=== PATIENT | female | born 1975 | race Caucasian/White ===

== ENCOUNTER 2017-06-24 11:16 | Outpatient (CLI) | payer OTHER ==
--- NOTE | 2017-06-24 14:42 | MRI ---
MRI OF LEFT KNEE PERFORMED WITHOUT CONTRAST ENHANCEMENT: Date: 06/24/17 HISTORY: Left knee pain. No history of previous surgery. FINDINGS: The anterior, as well as posterior cruciate ligaments are intact. The medial meniscus on the coronal sequence, image 18 of 25 on the proton density sequence, shows a t iny free edge tear. The lateral meniscus is normal in shape and appearance. Medial and lateral collateral ligaments and iliotibial band regions are unremarkable. Patellar articular cartilage is intact. The medial and lateral patellar retinaculum and quadriceps an d patellar tendons are normal in appearance. IMPRESSION: Tiny free edge radial tear involving the mid portion of the body of the posterior horn of the medial meniscus. POS: [facility]
== END 2017-06-24 11:17 | disposition home or self-care (01) ==
LOC: MRI 11:16
PROVIDERS: ATTEND Orthopaedic Surgery
DX: M25.562 Pain in left knee (principal); S83.242A Other tear of medial meniscus, current injury, left knee, initial encounter

== ENCOUNTER 2018-08-02 14:39 | Outpatient (CLI) | payer OTHER ==
--- NOTE | 2018-08-02 15:30 | RAD ---
TWO VIEWS OF THE CHEST: COMPARISON: 09/05/2012. HISTORY: Cough and wheezing for 4 months. FINDINGS: Two views of the chest show a normal-size cardiomediastinal silhouette. There are subtle airspace op acities projecting over the mid left thorax which were not seen on the prior radiograph and may repre sent a subtle infiltrate. NO pleural effusion is seen. The bones are unremarkable. IMPRESSION: Subtle left-sided pulmonary infiltrate. POS: [facility]
== END 2018-08-02 14:40 | disposition home or self-care (01) ==
LOC: BICRAD 14:39
PROVIDERS: ATTEND Family Medicine
DX: R05 Cough (principal); J98.4 Other disorders of lung
CPT/HCPCS: 71046

== ENCOUNTER 2019-07-04 08:08 | Outpatient (CLI) | payer OTHER | END 2019-07-04 08:09 | disposition home or self-care (01) | LOC: DTY/OP 08:08 | PROVIDERS: ATTEND Surgery | DX: E66.01 Morbid (severe) obesity due to excess calories (principal) | CPT/HCPCS: 97802 ==

== ENCOUNTER 2019-07-06 15:52 | Outpatient (CLI) | payer OTHER ==
--- NOTE | 2019-07-06 16:28 | RAD ---
Exam: 2 views right calcaneus HISTORY: Burning sensation, times a couple months. FINDINGS: Mild hypertrophic changes of the calcaneus at the plantar aponeurosis site as well as at the Achilles tendon insertion site. Normal trabeculation. No evidence of subtalar compromise. No fracture. Nonspecific sclerosis of the calcaneus is noted IMPRESSION: Presumed chronic changes. No acute fracture.
== END 2019-07-06 15:53 | disposition home or self-care (01) ==
LOC: BICRAD 15:52
PROVIDERS: ATTEND Family Medicine
DX: M79.671 Pain in right foot (principal)

== ENCOUNTER 2019-08-03 13:02 | Outpatient (CLI) | payer OTHER | END 2019-08-03 13:03 | disposition home or self-care (01) | LOC: DTY/OP 13:02 | PROVIDERS: ATTEND Surgery | DX: E66.01 Morbid (severe) obesity due to excess calories (principal) | CPT/HCPCS: 97802 ==

== ENCOUNTER 2019-09-05 14:30 | Outpatient (CLI) | payer OTHER | END 2019-09-05 14:31 | disposition home or self-care (01) | LOC: DTY/OP 14:30 | PROVIDERS: ATTEND Surgery | DX: E66.01 Morbid (severe) obesity due to excess calories (principal) | CPT/HCPCS: 97802 ==

== ENCOUNTER 2019-10-04 12:02 | Outpatient (CLI) | payer OTHER | END 2019-10-04 12:03 | disposition home or self-care (01) | LOC: DTY/OP 12:02 | PROVIDERS: ATTEND Surgery | DX: E66.01 Morbid (severe) obesity due to excess calories (principal) | CPT/HCPCS: 97802 ==

== ENCOUNTER 2019-12-02 07:07 | Outpatient (CLI) | payer OTHER | END 2019-12-02 07:08 | disposition home or self-care (01) | LOC: LABBT 07:07 | PROVIDERS: ATTEND Surgery | DX: E66.01 Morbid (severe) obesity due to excess calories (principal); Z20.828 Contact with and (suspected) exposure to other viral communicable diseases | CPT/HCPCS: 71046; 80053; 83036; 84703; 85025; 87635; U0003 ==

== ENCOUNTER 2019-12-02 09:45 | Inpatient (IN) | payer OTHER ==
[2019-12-06] MEDS ORDERED: Heparin 5,000 UNITS/ML VIAL ONE (06:43)
[2019-12-06] MEDS ORDERED: Fentanyl 100 MCG/2 ML VIAL ONE ×3 (06:55→08:59)
[2019-12-06] MEDS ORDERED: Bupivacaine 0.25% HCL 30 ML VIAL ONE (07:08)
[2019-12-06] MEDS ORDERED: Lidocaine 1% w/Epinephrine 1:100K 20 ML VIAL ONE (07:08)
[2019-12-06] MEDS ORDERED: Midazolam HCl 2 mg/2 ml Vial ONE (07:13)
[2019-12-06] MEDS ORDERED: Zolpidem Tartrate 5 MG TAB PO PRN (08:49)
[2019-12-06] MEDS ORDERED: fentaNYL Citrate/PF 2,000 MCG in Sodium Chloride 0.9% 60 ML IV PRN (08:49)
[2019-12-06] MEDS ORDERED: Promethazine HCl 25 MG/ML VIAL IM PRN ×3 (08:49→10:31)
[2019-12-06] MEDS ORDERED: diphenhydrAMINE 25 MG CAP PO PRN (08:49)
[2019-12-06] MEDS ORDERED: diphenhydrAMINE 50 MG/ML VIAL IM PRN (08:49)
[2019-12-06] MEDS ORDERED: Promethazine HCl 25 MG/ML VIAL SLOW IVP PRN (08:49)
[2019-12-06] MEDS ORDERED: Ondansetron HCl/PF 4 MG/2 ML Vial IVP PRN (08:49)
[2019-12-06] MEDS ORDERED: diphenhydrAMINE 50 MG/ML VIAL IVP PRN ×2 (08:49→10:31)
[2019-12-06] MEDS ORDERED: Naloxone HCl 0.4 mg/ml Vial IV PRN (08:49)
[2019-12-06] MEDS ORDERED: Communication Order-Pharmacy FS SCH (09:00)
--- NOTE | 2019-12-06 09:42 | OP ---
DATE OF PROCEDURE: 12/06/2019 PREOPERATIVE DIAGNOSES: 1. Morbid obesity with body mass index of 39. 2. Hypertension. POSTOPERATIVE DIAGNOSES: 1. Morbid obesity with body mass index of 39. 2. Hypertension. PROCEDURES PERFORMED: 1. Laparoscopic sleeve gastrectomy with [place] staple line reinforcement and 38-[place] bougie. 2. Esophagogastroduodenoscopy. ANESTHESIA: General. ESTIMATED BLOOD LOSS: Minimal. COMPLICATIONS: None. SPECIMEN: Stomach. FINDINGS: Normal postoperative EGD. DESCRIPTION OF PROCEDURE: The patient was taken to the operating room and laid supine on the operating room table. After general anesthetic was obtained, an OG tube was used to decompress the stomach. The arms and legs were double strapped to bariatric table. The abdomen was prepped and draped in a sterile fashion. Left subcostal 5-mm Optiview trocar was placed in the usual fashion and high-flow pneumoperitoneum was obtained. Left and right abdominal 12-mm ports as well as a right subcostal 5-mm port were placed under direct visualization. Ismael was brought in through the xiphoid and used to raise the liver off the GE junction. Short gastrics were taken down from mid body of stomach to left jordy of diaphragm. Left jordy, posterior fundus, and angle of His were completely dissected. Short gastrics were taken down to a distance of 6 cm proximal to the pylorus. There was no hiatal hernia. OG tube was removed and a 38 bougie was brought in, tip was left in the antrum of the stomach. Multiple loads of an Reid stapling device were used to form the sleeve. The first was a green load, fired up at 6 cm proximal to the pylorus, angled up towards the incisura. Care was taken to avoid being too close to the incisura. Multiple loads were then fired along the bougie. Stomach was completely transected at the angle of His. Stomach was removed from the left abdominal incision. The fascial defect was closed using GraNee needle and 0 Vicryl tie. EGD scope was passed through esophagus and stomach to the level of duodenum without obstruction. There was no stricture at the incisura. There was no evidence of leakage along that staple line. There was no bleeding. EGD scope was used to decompress the stomach. It was pulled and removed. All port sites were infiltrated using local anesthetic. All ports were removed under camera visualization. Pneumoperitoneum was let down. Vicryl was used to close the fascia defect from the left abdominal incisions. All incisions were irrigated and closed using 4-0 Monocryl and Dermabond. The patient was sent to Recovery in stable condition. All instrument counts, needle counts, and lap counts were correct. Job ID: [id number]
[2019-12-06] MEDS ORDERED: Pantoprazole 40 MG VIAL IVP SCH ×2 (10:31→11:15)
[2019-12-06] MEDS ORDERED: Dextrose 5% in Water 1,000 ML IV PRN (10:31)
[2019-12-06] MEDS ORDERED: hydrALAZINE 20 MG/ML VIAL SLOW IVP PRN (10:31)
[2019-12-06] MEDS ORDERED: BUPROPION HCL 150 MG PO SCH (10:31)
[2019-12-06] MEDS ORDERED: Hydrocodone-Acetamin 15 ML UDCUP PO PRN (10:31)
[2019-12-06] MEDS ORDERED: Dextrose 50% Abboject 50 ML SYRINGE SLOW IVP PRN (10:31)
[2019-12-06] MEDS ORDERED: Lisinopril 20 MG TAB PO SCH ×2 (10:31→11:15)
[2019-12-06] MEDS ORDERED: Ondansetron PF 4 MG/2 ML Vial IVP PRN (10:31)
[2019-12-06] MEDS ORDERED: Lidocaine 1% PF 5 ML VIAL ONE (10:42)
[2019-12-06] MEDS ORDERED: EPHEDRINE 25 MG/5 ML SYRINGE ONE (10:42)
[2019-12-06] MEDS ORDERED: PHENYLEPHRINE-NS 100 MCG/ML 10 ML SYRINGE ONE (10:42)
[2019-12-06] MEDS ORDERED: Glycopyrrolate 0.2 MG/ML 5 ML SYRINGE ONE (10:42)
[2019-12-06] MEDS ORDERED: Rocuronium Bromide 10 MG/ML (10ML VIAL) ONE (10:42)
[2019-12-06] MEDS ORDERED: Ondansetron PF 4 MG/2 ML Vial ONE (10:42)
[2019-12-06] MEDS ORDERED: Dexamethasone 20 MG/5 ML VIAL ONE (10:42)
[2019-12-06] MEDS ORDERED: PROPOFOL 200 MG/20 ML VIAL ONE (10:42)
[2019-12-06] MEDS: Ondansetron PF 4 MG/2 ML Vial IVP PRN ×2 (10:47→22:33)
[2019-12-06 10:49] VITALS: BMI 37.5
[2019-12-06] MEDS ORDERED: Bupropion 150 MG SR TAB PO SCH (11:15)
[2019-12-06] MEDS ORDERED: Ketorolac Tromethamine 30 MG/ML VIAL IVP SCH (12:00)
[2019-12-06] MEDS: D5 1/2 NS w/20 mEq KCL 1,000 ML IV SCH ×2 (13:13→20:27)
[2019-12-06] MEDS: Enoxaparin Sodium 40 MG/0.4 ML SYRINGE SC SCH (20:22)
[2019-12-07] MEDS: D5 1/2 NS w/20 mEq KCL 1,000 ML IV SCH ×2 (04:49→15:01)
[2019-12-07 05:20] LABS: #Lymphocytes 1.8 thou/uL (1.20-3.40); #Monocytes 1.1 thou/uL (0.11-0.59); #Neutrophils 11.4 thou/uL (1.40-6.50); %Basophils 0.2 % (0.0-1.0); %Eosinophils 0.3 % (0.0-10.0); %Lymphocytes 12.2 % (21.0-51.0); %Monocytes 7.8 % (0.0-10.0); %Neutrophils 79.4 % (42.0-75.0); Hemoglobin 14.2 g/dL (12.0-16.0); Mean Corpuscular HGB CONC 32.2 g/dL (32.0-36.0); Mean Corpuscular Hemoglobin 29.8 pg (27.0-31.0); Mean Corpuscular Volume 92.5 fL (78.0-98.0); Platelet Count 221 thou/uL (130-400); RBC Distribution Width 11.4 % (11.5-14.5); Red Blood Cell (RBC) Count 4.78 mill/uL (4.20-5.40); White Blood Cell (WBC) Count 14.4 thou/uL (4.8-10.8)
[2019-12-07 05:37] LABS: Anion Gap 11 mmol/L (10-20); BUN (Urea Nitrogen) 4 mg/dL (7.0-18.7); Calc. Creatinine Clearance 175 mL/min (70-130); Calcium 8.8 mg/dL (7.8-10.44); Carbon Dioxide 26 mmol/L (22-29); Chloride 103 mmol/L (98-107); Estimated GFR-MDRD Greater than 90; Glucose 125 mg/dL (70-105); Potassium 3.5 mmol/L (3.5-5.1); Sodium 136 mmol/L (136-145)
[2019-12-07] MEDS: Acetaminophen 650 MG/20.3 ML UDCUP PO PRN ×2 (07:53→14:23)
[2019-12-07] MEDS: Lisinopril 20 MG TAB PO SCH (07:53)
[2019-12-07] MEDS: Bupropion 150 MG SR TAB PO SCH (07:54)
[2019-12-07] MEDS: Pantoprazole 40 MG VIAL IVP SCH (07:55)
[2019-12-07] MEDS: Ondansetron PF 4 MG/2 ML Vial IVP PRN ×3 (07:57→20:43)
[2019-12-07] MEDS ORDERED: traMADol HCl 50 MG TAB PO PRN (08:09)
[2019-12-07] MEDS: traMADol HCl 50 MG TAB PO PRN (18:06)
[2019-12-07] MEDS: Enoxaparin Sodium 40 MG/0.4 ML SYRINGE SC SCH (20:43)
[2019-12-08] MEDS: D5 1/2 NS w/20 mEq KCL 1,000 ML IV SCH ×3 (00:45→08:59)
[2019-12-08] MEDS: traMADol HCl 50 MG TAB PO PRN ×2 (04:01→15:28)
[2019-12-08] MEDS: Ondansetron PF 4 MG/2 ML Vial IVP PRN (04:01)
[2019-12-08] MEDS: Lisinopril 20 MG TAB PO SCH (08:59)
[2019-12-08] MEDS: Pantoprazole 40 MG VIAL IVP SCH (08:59)
[2019-12-08] MEDS: Bupropion 150 MG SR TAB PO SCH (08:59)
--- NOTE | 2019-12-08 09:29 | DIS ---
DATE OF ADMISSION: 12/06/2019 DATE OF DISCHARGE: 12/08/2019 ADMITTING DIAGNOSIS: Morbid obesity. DISCHARGE DIAGNOSIS: Morbid obesity. PROCEDURE PERFORMED: Laparoscopic sleeve gastrectomy by Dr. Driscoll without complication. CONDITION ON DISCHARGE: Improved. STAFF: Flex Driscoll MD HOSPITAL COURSE: On postop day 1, the patient had nausea and was not able to tolerate much of her liquids. On postop day 2, she is doing better. She is tolerating enough liquids per protocol. She is ambulatory. Pain is controlled. She is discharged home. Prescriptions for Ultram, Zofran, pantoprazole sent over to her pharmacy. She will follow up with me in 2 weeks. Job ID: [id number]
[2019-12-08 16:32] VITALS: BP 134/85; TEMP 98.8
== END 2019-12-08 16:50 | disposition home or self-care (01) | DRG 621 ==
LOC: SURG A 12-06 05:56 → SURG B 12-06 10:42
PROVIDERS: ADMIT Surgery; ATTEND Surgery
PROC: 0DB64Z3 Excision of Stomach, Percutaneous Endoscopic Approach, Vertical (ICD-10-PCS; principal; 2019-12-06)
PROC: 0DJ08ZZ Inspection of Upper Intestinal Tract, Via Natural or Artificial Opening Endoscopic (ICD-10-PCS; 2019-12-06)
DX: E66.01 Morbid (severe) obesity due to excess calories (principal); Z68.39 Body mass index [BMI] 39.0-39.9, adult; I10 Essential (primary) hypertension; Z88.8 Allergy status to other drugs, medicaments and biological substances; Z79.899 Other long term (current) drug therapy
CPT/HCPCS: 36415; 80048; 85025; 88307; 88312; 93005; 93010; C9113; J0690; J1100; J1644; J1650; J2250; J2405; J2704; J3010; J3480; S0020

== ENCOUNTER 2019-12-14 09:42 | Day surgery (SDC) | payer OTHER ==
[2019-12-14 09:50] VITALS: BP 114/65; TEMP 98.1
[2019-12-14] MEDS ORDERED: Ondansetron PF 4 MG/2 ML Vial IVP PRN (09:52)
[2019-12-14] MEDS ORDERED: Sodium Chloride 0.9% 2,000 ML IV SCH (10:00)
[2019-12-14] MEDS ORDERED: Multivitamins, Adult 10 ML, Thiamine HCl 100 MG in Sodium Chloride 0.9% 500 ML IV SCH (10:00)
[2019-12-14] MEDS ORDERED: Sodium Chloride 0.9% 20 ML ONE (10:28)
== END 2019-12-14 13:17 | disposition home or self-care (01) ==
LOC: ONC/OP 09:42
PROVIDERS: ATTEND Surgery
DX: E86.0 Dehydration (principal); Z88.5 Allergy status to narcotic agent
CPT/HCPCS: 96361; 96365; 96366; J3411; J7030

== ENCOUNTER 2024-04-01 10:33 | Outpatient (CLI) | payer BC ==
[2024-04-01] MEDS ORDERED: Iopamidol 370 76% 100 ML VIAL ONE (12:22)
== END 2024-04-01 10:34 | disposition home or self-care (01) ==
LOC: CT 10:33
PROVIDERS: ATTEND Internal Medicine Cardiovascular Disease
DX: I71.21 Aneurysm of the ascending aorta, without rupture (principal)
CPT/HCPCS: 71275; 74175; Q9967

== ENCOUNTER 2024-04-05 06:04 | Day surgery (SDC) | payer BC ==
[2024-04-05] MEDS ORDERED: PHENYLEPHRINE-NS 100 MCG/ML 10 ML SYRINGE ONE (07:55)
[2024-04-05] MEDS ORDERED: Midazolam HCl 2 mg/2 ml Vial ONE (07:56)
== END 2024-04-05 09:48 | disposition home or self-care (01) ==
LOC: SDC 06:04
PROVIDERS: ATTEND Internal Medicine Cardiovascular Disease
PROC: B24BZZ4 Ultrasonography of Heart with Aorta, Transesophageal (ICD-10-PCS; principal; 2024-04-05)
DX: I35.1 Nonrheumatic aortic (valve) insufficiency (principal); I34.0 Nonrheumatic mitral (valve) insufficiency; I71.21 Aneurysm of the ascending aorta, without rupture; I07.1 Rheumatic tricuspid insufficiency; Z79.899 Other long term (current) drug therapy; Z90.49 Acquired absence of other specified parts of digestive tract; Z88.8 Allergy status to other drugs, medicaments and biological substances; Z88.5 Allergy status to narcotic agent
CPT/HCPCS: 93312; J2250

== ENCOUNTER 2025-03-31 12:04 | Outpatient (CLI) | payer BC | END 2025-03-31 12:05 | disposition home or self-care (01) | LOC: MRI 12:04 | PROVIDERS: ATTEND Family Medicine | DX: M50.123 Cervical disc disorder at C6-C7 level with radiculopathy (principal); M48.02 Spinal stenosis, cervical region | CPT/HCPCS: 72141 ==